=== PATIENT | male | born 1975 | race Caucasian/White ===

== ENCOUNTER 2018-01-06 18:39 | Emergency (ER) | payer MEDICAID ==
[~2018-01-06] VITALS: Ht 182.9 cm; Wt 81.6 kg
[2018-01-06] MEDS ORDERED: IV NS 1000 ML 1,000 ML IV ONE (19:00)
--- NOTE | 2018-01-06 19:07 | NUR ---
SB[facility] REPORT TO PINA LESLIE.
--- NOTE | 2018-01-06 19:10 | NUR ---
PATIENT SHIELDED AFGA: 110@2.5 EXAM END 1910
[2018-01-06] MEDS ORDERED: OLANZAPINE 10 MG VIAL IM ONE ×2 (19:14→19:17)
[2018-01-06] MEDS ORDERED: LORAZEPAM 2 MG/1 ML VIAL IV ONE (19:15)
[2018-01-06] MEDS ORDERED: LORAZEPAM 2 MG/1 ML VIAL ONE ×3 (19:18→20:02)
[2018-01-06 19:20] LABS: BASOPHILS % (AUTO) 0.3 % (0.0-2.0); EOSINOPHILS % (AUTO) 0.1 % (0.0-7.0); HEMATOCRIT 37.8 % (36.7-47.1); HEMOGLOBIN 12.5 g/dL (12.5-16.3); LYMPHOCYTES # (AUTO) 1.8 K/uL (20.0-40.0); LYMPHOCYTES % (AUTO) 21.5 % (20.5-51.5); MEAN CORPUSCULAR HEMOGLOBIN 25.9 uug (23.8-33.4); MEAN CORPUSCULAR HGB CONC 33 g/dL (32.5-36.3); MEAN CORPUSCULAR VOLUME 78.3 fL (73.0-96.2); NEUTROPHILS # (AUTO) 5.7 K/uL (1.8-8.9); NEUTROPHILS % (AUTO) 66.1 % (38.5-71.5); PLATELET COUNT (AUTO) 256 K/uL (152-348); RED BLOOD CELL COUNT(AUTO) 4.82 MIL/uL (4.06-5.63); WHITE BLOOD COUNT (AUTO) 8.6 K/uL (3.6-10.2)
[2018-01-06 19:21] LABS: *BILIRUBIN,URIN 1+ (NEGATIVE); *BLOOD, URINE 2+ (NEGATIVE); *CLARITY,URINE SLIGHTLY CLOUDY (CLEAR); *COLOR,URINE YELLOW (YELLOW); *KETONES,URINE TRACE (NEGATIVE); LEUKOCYTE ESTERASE ,URINE NEGATIVE (NEGATIVE); NITRITE, URINE NEGATIVE (NEGATIVE); PH,URINE 5.5 (5.0-8.0); UGLUCOSE NEGATIVE (NEGATIVE)
[2018-01-06 19:22] LABS: CARBON DIOXIDE 24 mmol/L (21-32); CHLORIDE 105 mmol/L (98-107); CREATININE 1.4 mg/dL (0.6-1.3); GLUCOSE 89 mg/dL (74-106); UREA NITROGEN, BLOOD 13 mg/dL (7-18)
[2018-01-06 19:28] LABS: ETHANOL < 3 MG/DL (0-0)
[2018-01-06 19:29] LABS: ALANINE AMINOTRANSFERASE 73 U/L (16-63); ALKALINE PHOSPHATASE 173 U/L (50-136); ASPARTATE AMINOTRANSFERASE 43 U/L (15-37); BILIRUBIN,TOTAL 0.8 mg/dL (0.2-1.0); CREATINE KINASE, TOTAL 694 U/L (39-308); TOTAL PROTEIN, SERUM 9.3 g/dL (6.4-8.2)
[2018-01-06 19:32] LABS: *AMPHETAMINE, URINE NEGATIVE (NEGATIVE); *BARBITURATE, URINE NEGATIVE (NEGATIVE); *CANNABINOID, URINE POSITIVE (NEGATIVE); *COCCAINE, URINE NEGATIVE (NEGATIVE); *OPIATE, URINE NEGATIVE (NEGATIVE); *PHENCYCLIDINE SCREEN,URINE NEGATIVE (NEGATIVE)
[2018-01-06 19:34] LABS: *PROTEIN,URINE 3+ (NEGATIVE)
[2018-01-06 19:39] LABS: BACTERIA,URINE MODERATE /HPF (NONE SEEN); RBC,URINE 20-50 /HPF (0-3)
[2018-01-06 19:40] LABS: MUCUS,URINE MANY /LPF (0-FEW)
--- NOTE | 2018-01-06 19:43 | NUR ---
Pt pulled IV, charge nurse notified.
--- NOTE | 2018-01-06 19:47 | NUR ---
Pt keeps getting up and walking around the room even after repeatedly being told to stay in bed.
[2018-01-06] MEDS ORDERED: diphenhydrAMINE 50 MG/1 ML VIAL IM ONE (19:58)
[2018-01-06] MEDS ORDERED: LORAZEPAM 2 MG/1 ML VIAL IM ONE (20:00)
[2018-01-06] MEDS ORDERED: diphenhydrAMINE 50 MG/1 ML VIAL ONE (20:02)
--- NOTE | 2018-01-06 20:05 | NUR ---
Pt asleep in bed, no acute signs of distress.
--- NOTE | 2018-01-06 21:17 | NUR ---
Pt sleeping in bed, no acute signs of distress.
--- NOTE | 2018-01-06 23:36 | NUR ---
Pt in bed sleeping, no acute signs of distress, VSS.
[2018-01-07] MEDS ORDERED: IV NS 1000 ML 1,000 ML IV ONE (00:45)
--- NOTE | 2018-01-07 00:47 | NUR ---
Pt awake, more cooperative, inserted new IV on left AC 20G, Patient given juice, water, and sandwich.
--- NOTE | 2018-01-07 02:35 | NUR ---
Pt states he doesn't know any phone numbers, states he lives in his car, parked his car by his friend's house in [place]. Reports he doesn't have a way to get home, and missing his personal belongings and wallet that was never brought in by rescue. Streetcar Operator notified for a taxi voucher.
--- NOTE | 2018-01-07 02:42 | NUR ---
Pt ambulated with steady gait to bathroom.
--- NOTE | 2018-01-07 02:56 | NUR ---
Patient discharged to home in stable conditon. Written and verbal after care instructions given. Patient verbalizes understanding of instructions. Patient ambulated out of ER with steady gait, no acute signs of distress, VSS, all belongings taken. Patient has taxi voucher, to given address [id number] [place] [address]
[2018-01-07 03:06] VITALS: BP 119/85
== END 2018-01-07 03:09 | disposition home or self-care (01) ==
LOC: ER 18:43
DX: R41.82 Altered mental status, unspecified (principal); M62.82 Rhabdomyolysis; E86.9 Volume depletion, unspecified; F12.988 Cannabis use, unspecified with other cannabis-induced disorder; R11.10 Vomiting, unspecified
CPT/HCPCS: 36415; 70030-TC; 71045; 80307; 85025; 93005; A4217; A4663; G0480; J1200; J2060; J2358; J7030